=== PATIENT | female | born 1945 | race Caucasian/White ===

== ENCOUNTER → 2017-01-10 | Outpatient (CLI) | payer OTHER, MEDICARE ==
[~2017-01-10] MED LIST: ALBUTEROL2.5 MG/31 INH; ALIGN4 MG; ALLERGY RELIEF10 M1; AMBIEN 5 MG TABL5 M1 PO; ASA5UEC PO; ASPIRIN EC81 M1 PO; ASPIRIN325 PO; ASTEPRO205.5 MCG/; AYR SALINE NASA14 GM; AYR SALINE NASA14 GM TOP; BENEFIBER; BREO ELLIPTA 11 EACH; CALCIUM 1,0001 EACH PO; CALCIUM OYSTER500 MG PO; CALCIUM PO; CARAFATE 1 GM TA1 G1 PO; CARDIZEM CD180 MG OR; CARDIZEM CD180 MG PO; CEFTIN 250 MG250 MG GT; CENTRUM SILVER1 EAC1 PO; CENTRUM SILVER1 EAC4 PO; CIPROFLOXACIN250 M2 PO; CIPROFLOXACIN500 M1 PO; CLARITIN10 M2 PO; CLARITIN10 MG PO; COUMADIN 2.5MG2.5 M1 PO; COUMADIN 3 MG TA3 MG PO; COUMADIN 5 MG TA5 M1; COUMADIN 5 MG TA5 M1 PO; CRANBERRY 12,61 EACH PO; CRANBERRY200 MG; DETROL LA4 MG PO; DEXILANT60 MG PO; DILTIAZEM ER120 M1 PO; DOXYCYCLINE 10100 M1; DOXYCYCLINE 10100 M1 PO; DOXYCYCLINE 10100 MG PO; DULERA 100 MCG/13 GM IH; DULERA 100 MCG/13 GM INH; ENOXAPARIN100 MG/1 M SQ; GAVISCON EXTRA355 ML PO; HI-CAL500 MG PO; HYDROCODON-ACE1 EAC7 PO; IBUPROFEN 600600 M1 PO; KAPIDEX60 MG PO; KEFLEX500 MG PO; KLOR-CON 1010 MEQ PO; LANOXIN 0.250.25 MG PO; LEVALBUTER1.25 MG/3; LEVAQUIN 250 M250 MG PO; LEVAQUIN 500 M500 M2 PO; LEVAQUIN 500 M500 MG PO; LOMOTIL TABLET1 EACH PO; MACRODANTIN50 M1 PO; MACRODANTIN50 MG; MAGNESIUM GLUC250 MG PO; METOCLOPRAMIDE 55 M1 PO; MINIPRIN81 MG PO; MYRBETRIQ50 MG PO; NASOGEL SALIN28.4 GM NS; NASONEX17 GM; NASONEX17 GM IH; NASONEX17 GM NASAL; NEILMED SINUS R1 KIT NASAL; NORCO 5-325 TA1 EACH; NORCO 5-325 TA1 EACH PO; NYSTATIN 100,0015 G1 TOP; OXYBUTYNIN 5 MG5 M1 PO; OXYBUTYNIN PO; PACERONE 200 M200 M1 PO; PACERONE 200 M200 MG PO; PREDNISONE 10 M10 M1 PO; PREDNISONE 10 M10 MG PO; PREDNISONE 20 M20 MG PO; PREDNISONE50 MG PO; PROBIOTIC1 EAC1 PO; PROTONIX40 M2 PO; PROVENTIL HFA6.7 G1 INH; QUINAGLUTE DUR324 M1 PO; QUININE SULFAT324 MG; QVAR HFA 440 MCG/UN1 INH; RESTASIS1 EACH OPHTHALMIC; RYTHMOL SR325 MG PO; SALINE NASAL GEL NASAL; SEREVENT DISKU50 MCG IH; SINGULAIR 10 MG10 M1 PO; SINGULAIR PO; SINUS WASH NET1 EACH NASAL; SLOW-MAG64 MG PO; SYMBICORT160 MCG/4. IH; TRAMADOL 50 MG50 MG PO; TUSSIONEX PENN473 ML PO; TUSSIONEX PENNKI1 ML PO; VENTOLIN HFA 1818 GM; VITAMIN D1000 UNI1 PO; XARELTO10 MG PO; XARELTO20 MG PO; XOPENEX HF1 UDINHALE; XOPENEX HFA15 GM INH; ZYRTEC; ZYRTEC 10 MG TA10 MG PO; [UNRECOGNIZED DRUG - SUPPLY]
== END ==
LOC: RAD 13:21
DX: J41.8 Mixed simple and mucopurulent chronic bronchitis (principal)

== ENCOUNTER → 2017-09-06 | Outpatient (CLI) | payer OTHER, MEDICARE | LOC: RAD 14:28 | DX: J98.11 Atelectasis (principal); J18.9 Pneumonia, unspecified organism ==

== ENCOUNTER 2019-08-14 04:52 | Inpatient (IN) | payer OTHER, MEDICARE ==
[~2019-08-14] VITALS: Ht 152.4 cm; Wt 99.8 kg
[2019-08-14 04:54] VITALS: BP 152/82
[2019-08-14] MEDS ORDERED: SYMBICORT160 MCG/4. INH (05:09)
[2019-08-14] MEDS ORDERED: TAMBOCOR 100 M100 M1 PO (05:10)
[2019-08-14] MEDS ORDERED: OMEPRAZOLE 20 M20 M1 PO (05:10)
[2019-08-14] MEDS ORDERED: CARTIA XT180 M1 PO (05:10)
[2019-08-14] MEDS ORDERED: OXYBUTYNIN 5 MG5 M2 PO (05:11)
[2019-08-14] MEDS ORDERED: CARTIA XT240 M1 PO (05:11)
[2019-08-14] MEDS ORDERED: FINACEA50 G1 TOP (05:11)
[2019-08-14] MEDS ORDERED: XYZAL5 MG PO (05:12)
[2019-08-14] MEDS ORDERED: CELEXA 10 MG TA10 M1 PO (05:12)
[2019-08-14] MEDS ORDERED: HYDROCORT-PRAMO30 G1 TOP (05:13)
[2019-08-14] MEDS ORDERED: XOLAIR150 MG/1 M SUBQ (05:13)
[2019-08-14] MEDS ORDERED: KEFLEX500 M1 PO (05:14)
[2019-08-14] MEDS ORDERED: PROBIOTIC-10 11 EACH PO (05:14)
[2019-08-14 05:37] LABS: ABSOLUTE NEUTROPHILS 4.1 thou/uL (1.4-8.2); BASOPHILS 0.8 % (0.0-2.0); EOSINOPHILS 4.4 % (0.0-3.0); HEMATOCRIT 39.4 % (37.0-47.0); HEMOGLOBIN 13.2 gm/dL (12.0-15.0); LYMPHOCYTES 27.4 % (24.0-44.0); MCH 29.9 pg (26.0-34.0); MCHC 33.4 g/dL (28.0-37.0); MCV 89.5 fL (80.0-100.0); MONOCYTES 8.6 % (1.0-8.0); PLATELET COUNT 267 thou/uL (150-400); POLYS 58.8 % (36.0-66.0); RDW 13.4 % (10.5-14.5); WBC 6.9 thou/uL (4.0-11.0)
[2019-08-14 06:03] LABS: ANION GAP 10 mmol/L (7-16); BUN 19 mg/dL (7-18); CALCIUM 9.1 mg/dL (8.5-10.1); CHLORIDE 103 mmol/L (98-107); CO2 26 mmol/L (21-32); CREATININE 0.8 mg/dL (0.6-1.0); GLUCOSE 121 mg/dL (74-106); POTASSIUM 4.4 mmol/L (3.5-5.1); SODIUM 139 mmol/L (136-145)
[2019-08-14 06:05] LABS: APTT 31.8 Seconds (24.5-32.8); INR 1.2
[2019-08-14 06:11] LABS: ALBUMIN 3.5 g/dL (3.4-5.0); LIPASE 72 U/L (73-393); SGOT 30 U/L (15-37); SGPT 37 U/L (30-65); TOTAL BILIRUBIN 0.3 mg/dL (<0.1-1.0); TOTAL PROTEIN 7.2 g/dL (6.4-8.2); TROPONIN-I <0.06 ng/mL (<0.06)
[2019-08-14 06:24] LABS: URINE BILIRUBIN NEGATIVE (Negative); URINE BLOOD NEGATIVE (Negative); URINE CLARITY CLEAR; URINE COLOR YELLOW; URINE GLUCOSE-RANDOM* NEGATIVE (Negative); URINE KETONES NEGATIVE (Negative); URINE LEUKOCYTES-REFLEX NEGATIVE (Negative); URINE NITRITE-REFLEX NEGATIVE (Negative); URINE PROTEIN (DIPSTICK) NEGATIVE (Negative); URINE SPECIFIC GRAVITY 1.025 (1.005-1.035); URINE UROBILINOGEN 0.2 E.U./dl (0.2-1.0)
--- NOTE | 2019-08-14 17:23 | EKG ---
[place] [address] [facility] [place] [address] ELECTROCARDIOGRAM REPORT Name: NGOCUNIQUE CHIRINOS Room #: [id number] Admission: 08/14/19 Attend Phys: Discharge: Date of : 49 Report #: [id number] THIS REPORT FOR: //name// [facility] ED Test Date: 2019-08-14 Test Time: 05:49:14 Pat Name: UNIQUE GROSSMAN Department: Room: Gender: F Site Manager: nabeel vidal : 1945 Requested By: Stan Smith Order Number: [id number] MD: Sohail Shepherd Measurements Intervals [place] Rate: 62 P: 53 PA: 218 QRS: -8 QRSD: 112 T: 0 QT: 440 QTc: 447 Interpretive Statements Sinus rhythm Borderline prolonged PA interval Borderline intraventricular conduction delay Compared to ECG 05/01/2016 12:24:08 Left ventricular hypertrophy no longer present Electronically Signed On 08-14-2019 17:23:01 SENIOR ORACLE DATABASE DEVELOPER by Sohail Shepherd [email or web address] <ELECTRONICALLY SIGNED> By: Sohail Shepherd MD 08/14/19 1723 D: 0149 0549 Sohail Shepherd MD /IRMA
[2019-08-14 18:01] VITALS: BP 120/49
[2019-08-14 18:50] VITALS: BP 118/60
[2019-08-14 21:00] VITALS: BP 123/69
--- NOTE | 2019-08-14 21:18 | NUR ---
1914 PT TO FLOOR AND ADMISSION ASSESSMENT COMPLETED SEE ADMISSION CHARTIN, PT WITH COMPLAINTS OF MOVING ABDOMINAL PAIN AND CONSTIPATION. 2029 PT HAS HAD TWO-3 LARGE SOFT BOWEL MOVEMENTS IN BEDSIDE COMMODE, DAUGHTER AT BEDSIDE, FALL RISK BRACELET IN PLACE AND FALL YELLOW SOCKS ON, PT TO CALL NURSING TO GET UP OUT OF BED FALL CONTRACT SIGNED. 2119 PT CONTINUES ON BEDSIDE COMMODE, GAITBELT AT PT BEDSIDE, ANOTHER SOFT MED [employer] BM.
[2019-08-15 04:30] VITALS: BP 120/45
[2019-08-15 06:03] LABS: HEMATOCRIT 37.9 % (37.0-47.0); HEMOGLOBIN 12.2 gm/dL (12.0-15.0); MCHC 32.2 g/dL (28.0-37.0); MCV 90.2 fL (80.0-100.0); RBC 4.2 mil/uL (4.20-5.00); RDW 13.6 % (10.5-14.5); WBC 8.9 thou/uL (4.0-11.0)
[2019-08-15 06:22] LABS: CALCIUM 8.5 mg/dL (8.5-10.1); CREATININE 0.8 mg/dL (0.6-1.0); POTASSIUM 4.3 mmol/L (3.5-5.1)
[2019-08-15 08:18] VITALS: BP 118/64
--- NOTE | 2019-08-15 12:54 | NUR ---
ASSESSMENT-PT LIVES AT HOME WITH HER WHO IS ON HOSPICE CARE AND HER DTR VIKAS, ANOTHER DTR SABA LIVES ABOUT 5-10 MIN AWAY. PT HAS NOT HAD ANY HH SERVICES IN THE PAST. SHE USES A CANE TO GET AROUND IF HER BACK IS ACTING UP OTHEREWISE WALKS ON HER OWN AND DOES HER OWN ADLS. HER HAS A PVT DUTY CAREGIVER 2 DAYS A WEEK FOR 4HRS AND THIS PERSON ASSISTS WITH CLEANING THE HOUSE ALSO. THEY HAVE A WALK-IN SHOWER WITH SHOWER CHAIR AND BARS TO ASSIST. PT/DTR DENY ANY DC NEEDS AT THIS TIME. FOLLOWING.
[2019-08-15] MEDS ORDERED: PROTONIX40 M2 PO (14:09)
[2019-08-15] MEDS ORDERED: MIRALAX17 GM PO (14:09)
[2019-08-15 15:25] VITALS: BP 118/64
--- NOTE | 2019-08-15 16:27 | NUR ---
Assumed care of pt at 0700. Pt a&ox4. C/o abd pain. Prn pain meds administered. SBA to bedside commode. GI consulted. Fall precautions in place. Pt discharging to home.
== END 2019-08-15 16:57 | disposition home or self-care (01) | DRG 440 ==
LOC: ER 04:52 → 4S 17:45 → EROBS 17:45 → 4S 18:54
PROVIDERS: Emergency Medicine; ADMIT Hospitalist
DX: K85.90 Acute pancreatitis without necrosis or infection, unspecified (principal); K21.9 Gastro-esophageal reflux disease without esophagitis; K59.00 Constipation, unspecified; K83.8 Other specified diseases of biliary tract; M48.00 Spinal stenosis, site unspecified; K08.409 Partial loss of teeth, unspecified cause, unspecified class; J45.909 Unspecified asthma, uncomplicated; I48.91 Unspecified atrial fibrillation; Z79.899 Other long term (current) drug therapy; Z90.89 Acquired absence of other organs; Z90.49 Acquired absence of other specified parts of digestive tract; Z79.01 Long term (current) use of anticoagulants; Z87.442 Personal history of urinary calculi; Z98.42 Cataract extraction status, left eye; Z98.41 Cataract extraction status, right eye; Z87.891 Personal history of nicotine dependence; Z87.440 Personal history of urinary (tract) infections; Z88.5 Allergy status to narcotic agent; Z88.0 Allergy status to penicillin; Z88.2 Allergy status to sulfonamides; Z88.8 Allergy status to other drugs, medicaments and biological substances; Z86.010 Personal history of colon polyps
CPT/HCPCS: 10195

== ENCOUNTER 2020-06-14 12:20 | Inpatient (IN) | payer OTHER, MEDICARE ==
[~2020-06-14] VITALS: Ht 167.6 cm; Wt 127.8 kg
[~2020-06-14 12:20] MED LIST changes: +CARTIA XT180 M1 PO; +CARTIA XT240 M1 PO; +CELEXA 10 MG TA10 M1 PO; +FINACEA50 G1 TOP; +HYDROCORT-PRAMO30 G1 TOP; +KEFLEX500 M1 PO; +MIRALAX17 GM PO; +OMEPRAZOLE 20 M20 M1 PO; +OXYBUTYNIN 5 MG5 M2 PO; +PROBIOTIC-10 11 EACH PO; +SYMBICORT160 MCG/4. INH; +TAMBOCOR 100 M100 M1 PO; +XOLAIR150 MG/1 M SUBQ; +XYZAL5 MG PO
[2020-06-14 12:21] VITALS: BP 111/59
[2020-06-14 13:32] LABS: ANION GAP 12 mmol/L (7-16); BUN 20 mg/dL (7-18); CALCIUM 8.6 mg/dL (8.5-10.1); CHLORIDE 102 mmol/L (98-107); CO2 21 mmol/L (21-32); CREATININE 1.2 mg/dL (0.6-1.0); GLUCOSE 167 mg/dL (74-106); POTASSIUM 3.6 mmol/L (3.5-5.1); SODIUM 135 mmol/L (136-145)
[2020-06-14 13:41] LABS: APTT 29.7 Seconds (24.5-32.8); D-DIMER 0.19 ug/mLFEU (0.19-0.50); PROTIME 10.3 Seconds (9.3-11.4)
[2020-06-14 13:45] LABS: ALBUMIN 3.1 g/dL (3.4-5.0); DIRECT BILIRUBIN < 0.1 mg/dL (<0.1-0.2); SGOT 59 U/L (15-37); SGPT 56 U/L (30-65); TOTAL BILIRUBIN 0.2 mg/dL (0.2-1.0); TOTAL PROTEIN 7.1 g/dL (6.4-8.2); TROPONIN-I <0.06 ng/mL (<0.06)
--- NOTE | 2020-06-14 14:42 | EKG ---
[facility] [place] [address] ELECTROCARDIOGRAM REPORT Name: UNIQUE GROSSMAN Room #: REG [facility]#: [id number] Admission: 06/14/20 Attend Phys: Discharge: Date of : 49 Report #: [id number] THIS REPORT FOR: cc: Mojgan Hill MD, Cora A. MD Santiago, Patrick MD [facility] ~ THIS REPORT FOR: //name// [facility] ED Test Date: 2020-06-14 Test Time: 13:26:46 Pat Name: UNIQUE GROSSMAN Department: Room: Gender: F Farm Adviser: ORLY SANDERS : 1945 Requested By: Melissa Timmons Order Number: [id number] MD: Roberto Sprague Measurements Intervals [place] Rate: 74 P: 64 MN: 203 QRS: -14 QRSD: 115 T: 7 QT: 443 QTc: 492 Interpretive Statements Sinus rhythm Left atrial enlargement Left ventricular hypertrophy Borderline prolonged QT interval Compared to ECG 08/14/2019 05:49:14 Atrial abnormality now present Left ventricular hypertrophy now present Electronically Signed On 06-14-2020 14:42:23 NATURALIST by Roberto Sprague [email or web address] <ELECTRONICALLY SIGNED> By: Roberto Sprague MD, FACC 06/14/20 1442 1326 1326 Roberto Sprague MD, [facility] /EPI
[2020-06-14 14:52] LABS: ABSOLUTE NEUTROPHILS 3.5 thou/uL (1.4-8.2); BASOPHILS 0.2 % (0.0-2.0); EOSINOPHILS 0.1 % (0.0-3.0); HEMATOCRIT 38.9 % (37.0-47.0); HEMOGLOBIN 12.8 gm/dL (12.0-15.0); MCH 29.7 pg (26.0-34.0); MCHC 32.9 g/dL (28.0-37.0); MCV 90.3 fL (80.0-100.0); MONOCYTES 6.3 % (1.0-8.0); PLATELET COUNT 190 thou/uL (150-400); POLYS 80.4 % (36.0-66.0); RDW 14.4 % (10.5-14.5); WBC 4.3 thou/uL (4.0-11.0)
[2020-06-14 16:48] LABS: BE(vivo) -4.9 mmol/L (-2 to +3); HCO3 19.6 mmol/L (22.0-26.0); PCO2 34.6 mmHg (35.0-45.0); PO2 71.4 mmHg (80.0-100.0); pH 7.371 (7.360-7.450); sO2 94.1 % (92.0-98.0)
[2020-06-14 16:56] VITALS: BP 126/47
[2020-06-14 20:10] VITALS: BP 119/53
[2020-06-14 20:27] VITALS: BP 120/61
[2020-06-14 20:45] VITALS: BP 135/82
[2020-06-15] VITALS (8 sets, daily range): BP systolic 98–147; BP diastolic 50–88
[2020-06-15 05:31] LABS: FIBRINOGEN 389.2 mg/dL (210-360)
[2020-06-15 05:40] LABS: HEMATOCRIT 35.4 % (37.0-47.0); HEMOGLOBIN 11.9 gm/dL (12.0-15.0); MCH 30.1 pg (26.0-34.0); MCHC 33.6 g/dL (28.0-37.0); MCV 89.6 fL (80.0-100.0); PLATELET COUNT 181 thou/uL (150-400); RBC 3.95 mil/uL (4.20-5.00); RDW 14.5 % (10.5-14.5); WBC 2.5 thou/uL (4.0-11.0)
[2020-06-15 06:02] LABS: ALBUMIN 2.9 g/dL (3.4-5.0); CALCIUM 8.5 mg/dL (8.5-10.1); CREATININE 0.9 mg/dL (0.6-1.0); POTASSIUM 4.3 mmol/L (3.5-5.1); TOTAL BILIRUBIN 0.2 mg/dL (0.2-1.0); TOTAL PROTEIN 6.9 g/dL (6.4-8.2)
--- NOTE | 2020-06-15 07:35 | NUR ---
ADMITTED FROM ER UNDER 'S CARE. CONVALESCNET PLASMA INFUSION COMPLETED. MARSA SWAB,URINE COLLECTED. VSS. NO S/S ACUTE DISTRESS NOTED OR REPORTED AT THIS TIME. CARE TRANSFERRED TO INCOMING RN AT THIS TIME.
[2020-06-15 08:35] LABS: ABSOLUTE NEUTROPHILS 2.1 thou/uL (1.4-8.2)
[2020-06-15 08:36] LABS: PLATELET ESTIMATE NORMAL
--- NOTE | 2020-06-15 16:22 | NUR ---
ASSUMED PATIENT CARE AT 0800. A/O X4. NOTED 88% O2 SAT 0N 6L AT 0800. KEEP INCREAED 02 TO 10L BY 1400. NOTIFIED PADMINI HUTSON AND ANTHONY THAT PATIENT NEEDS MORE O2. POOR APPATITE. GENERLIZED WEAKNESS. VSS. NOT TOWARDS POC GOALS.
[2020-06-15 20:32] LABS: BE(vivo) -3.5 mmol/L (-2 to +3); PCO2 31.6 mmHg (35.0-45.0); pH 7.419 (7.360-7.450); sO2 88.8 % (92.0-98.0)
[2020-06-15 20:36] LABS: PO2 53.5 mmHg (80.0-100.0)
[2020-06-16 01:06] LABS: GLYCOHEMOGLOBIN (HGB A1C) 7.3 % (4.8-5.6)
[2020-06-16 03:31] VITALS: BP 134/75
--- NOTE | 2020-06-16 03:40 | NUR ---
PT AOX4. PT REPORTS NON-CARDIAC CHEST PAIN BROUGHT ON AND WORSENED BY COUGHING. PT REPORTS SOB WITH 15L PER NC, O2 SATURATIONS IN THE 80S, CYANOSIS TO LIPS OBSERVED. ONCALL CEMETERY LABORER NOTIFIED, STAT ABGS AND BIPAP ORDERED. ONCE BIPAP APPLIED, O2 SATURATIONS NOTED TO IMPROVE TO 97-100%. PT RESTLESS AND ANXIOUS WITH SOB. ONCALL CEMETERY LABORER NOTIFIED, RECEIVED ORDERS FOR ONETIME IV 0.25MG ATIVAN, GIVEN WITH POSITIVE EFFECT. PT MAINTAINED ON BIPAP. PT TOLERATING PO INTAKE OF FLUIDS AND REGULAR DIET WITHOUT ISSUE. PT VOIDING PER EXTERNAL CATHETER, NO BM THIS SHIFT. PT RESTING IN BED THROUGHOUT SHIFT, FREQUENT REPOSITIONING ENCOURAGED. PT NOTED TO SHIFT INDEPENDENTLY WHILE IN BED. PT NOTIFED STAFF WITH CONCERN OF HEARING NONVIOLENT VOICES CAUSING INCREASE IN ANXIETY AND RESTLESSNESS. ONCALL CEMETERY LABORER NOTIFIED, RECEIVED ORDERS FOR ONETIME IV 0.25MG HALDOL, GIVEN WITH POSITIVE EFFECT. PT ENCOURAGED TO NOTIFY STAFF FOR ALL NEEDS, CALL LIGHT WITHIN REACH, BED ALARM ON, BED IN LOWEST POSITION, FREQUENT MONITORING WILL CONTINUE.
[2020-06-16 05:00] LABS: BE(vivo) -5.9 mmol/L (-2 to +3); HCO3 18.7 mmol/L (22.0-26.0); PCO2 33.7 mmHg (35.0-45.0); PO2 174.4 mmHg (80.0-100.0); pH 7.361 (7.360-7.450); sO2 99.2 % (92.0-98.0)
[2020-06-16 06:12] LABS: CALCIUM 8.3 mg/dL (8.5-10.1); CREATININE 0.8 mg/dL (0.6-1.0); MAGNESIUM 1.8 mg/dL (1.8-2.4); POTASSIUM 3.9 mmol/L (3.5-5.1)
[2020-06-16 06:15] LABS: SGOT 56 U/L (15-37); SGPT 58 U/L (30-65)
[2020-06-16 07:46] VITALS: BP 141/73
[2020-06-16 11:27] VITALS: BP 122/81
--- NOTE | 2020-06-16 13:19 | NUR ---
CARE ASSUMED AT 0700, PT WAS PUT ON BIPAP LAST NIGHT, RESPIRATORY RATE IN THE 30'S, SOB WITH EXERTION. PT ALERT AND OREINTED X4, COMPARE TO CONFUSION DURING SUPERVISOR METER SHOP. PT DENIES ANY PAIN, NAUSEA AND VOMITTING. RICKETTS IN PLACE, SECURED AND PATENT. HOUSE SUP UPDATED ABOUT PT CARE AND POSSIBLE TRANSFER TO ICU DUE TO INCREASE NEED OF OXYEGN. COMFIRM WITH PT ABOUT CODE STATUS, SHE STATED SHE ONLY WANT INTUBATION, NO CPR. PT DAUGHTER CALLED AND UPDATED ABPUT PT CARE. FALL PRECAUTIONS IN PLACE. WILL CONTINUE TO MONITOR.
--- NOTE | 2020-06-16 14:42 | NUR ---
Case opened to follow for support and dc planning. Pt is currently in enhanced ISO for Covid+ (original test in the community 06/10/20). The pt came to the ER with worsening SOB and is now on the bipap 75% FIO2. Possible transfer to ICU if her condition worsens. Parking Enforcement Manager spoke with her dtr Lesly. Support provided and cm role introduced. Lesly indicates that she had covid and is on her last day of quarentine today. She is a mainframe developer. She lives with the pt in a multi story home with 10 steps up to the main level. The pt was a&ox4 and indep with gait/basic adl's prior to admission, but had been doing outpt therapy here as she has become weaker and more sedentary the past few months. The pt's with hospice care in February of this year and she has seemed to decline since this loss. Lesly indicates that she does the IADLS, errands, housekeeping and laundry. She takes the pt to any dr appts. Her pcp is Dr. Mojgan Hill at [facility] and her cardiologists are Dr. Brower, and Dr Cho at [facility]. The pt's dtr reports that her sister Hailey lives close by them and is supportive and involved as well. The pt has a cane but no other dme. She has not had any HH but they are receptive to referrals for HH/dme pending her dc needs. The pt rec'd cov plasma yesterday. The pt's dtr has been getting updates from the nursing staff and is aware of her current condition. Emotional support provided. Will continue to follow and reassess for possible HH/DME needs at dc.
[2020-06-16 15:20] VITALS: BP 126/72
[2020-06-16 19:07] VITALS: BP 81/61
[2020-06-17 03:34] VITALS: BP 131/53
--- NOTE | 2020-06-17 06:33 | NUR ---
PT ON BIPAP AND HAVING ANXIETY ISSUES WITH IT. SOON OFF, PT DESATS QUICKLY. RICKETTS IN PLACE. FOLLOWING POC WITH IVF/IVPB. HOURLY ROUNDING.
[2020-06-17 07:48] LABS: SGOT 40 U/L (15-37); SGPT 60 U/L (30-65)
[2020-06-17 08:45] VITALS: BP 150/83
[2020-06-17 12:29] VITALS: BP 148/84
[2020-06-17 14:09] LABS: HEMATOCRIT 38.1 % (37.0-47.0); HEMOGLOBIN 12.5 gm/dL (12.0-15.0); MCH 29.7 pg (26.0-34.0); MCHC 32.7 g/dL (28.0-37.0); MCV 90.7 fL (80.0-100.0); RBC 4.2 mil/uL (4.20-5.00); RDW 14.8 % (10.5-14.5); WBC 8.6 thou/uL (4.0-11.0)
[2020-06-17 14:10] LABS: CALCIUM 8.5 mg/dL (8.5-10.1); CREATININE 0.8 mg/dL (0.6-1.0)
--- NOTE | 2020-06-17 14:37 | NUR ---
SW reviewed chart and spoke with nursing and attending physician. Pt remains in Enhanced Isolation due to COVID-19. Pt is afebrile and requiring bipap support. Pt is on IV abx and IV steroids. Pt is completing course of Remdesivir. Pt was pulling at lines and taking off her bipap earlier today. SW received call from pt's dtr, Lesly, requesting an update and asked if pt was able to have her cell phone and alia with her in her room. Pt's dtr stated that she was told that pt may not be able to have these things with her. SW explained that she is able to have them in her room and SW will clarify with pt's nurse if she needs assistance with accessing the devices. SW spoke with pt's nurse, who states that pt has her devices on the table next to her. SW is following to assist as needed with discharge planning.
[2020-06-17 16:00] VITALS: BP 138/74
--- NOTE | 2020-06-17 18:35 | NUR ---
RN ASSUMED PT'S CARE AT 0700AM, PT IS A&OX3, PT IS CONTINUING BIPAP WITH O2 75% TO KEEP O2SAT AT 93-95%, PT'S VS ARE STABLE, BUT PT IS DESAT WHEN SHE IS EATING AND DRINKING AT ACTIVIES , PT IS CONTINING IV ABX AND IV FLIUD, PT HAS MEDICATION FOR ANXIETY. RN WILL REPORT TO NEXT SHIFT TO KEEP EYE ON PT.
[2020-06-17 21:49] VITALS: BP 145/76
[2020-06-18] VITALS (42 sets, daily range): BP systolic 122–208; BP diastolic 61–117
--- NOTE | 2020-06-18 04:28 | NUR ---
ASSESSMENT DOCUMENTED.PT RESTING IN NO ACUTE DISTRESS AT THIS TIME.REMAINS ON BIPAP AT FIO2 OF 75%,OXYGEN SATURATION ABOVE 95%.SOME PERIODS OF ANXIETY NOTED,PRN ANTIANXIETY MEDS GIVEN AND PT WAS ABLE TO RELAX AND SLEEP.SOB W/SLIGHT EXERTION EVEN WITH HYDRATION OR REPOSITIONING IN BED.TOLEARTING PO FLUIDS.IVPB ANTIBOTICS PER ORDERS.TYLENOL GIVEN FOR GENERALIZED ACHES W/RELIEF.PT VOICED HER NEEDS APPROPRIATELY.JAMARCUS DD,ADEQUATE UO.POC IS TO CONT W/CURRENT TREATMENT.DR [place] ROUNDED,NO N/OS RECEIVED.
[2020-06-18 05:44] LABS: ABSOLUTE NEUTROPHILS 5.7 thou/uL (1.4-8.2); HEMATOCRIT 35.9 % (37.0-47.0); MCH 29.8 pg (26.0-34.0); MCHC 33.5 g/dL (28.0-37.0); MCV 88.9 fL (80.0-100.0); MONOCYTES 4.9 % (1.0-8.0); PLATELET COUNT 235 thou/uL (150-400); POLYS 91.1 % (36.0-66.0); RBC 4.03 mil/uL (4.20-5.00); RDW 13.9 % (10.5-14.5); WBC 6.2 thou/uL (4.0-11.0)
[2020-06-18 06:33] LABS: CREATININE 0.7 mg/dL (0.6-1.0); POTASSIUM 3.6 mmol/L (3.5-5.1)
[2020-06-18 06:35] LABS: SGOT 38 U/L (15-37); SGPT 62 U/L (30-65)
--- NOTE | 2020-06-18 14:17 | NUR ---
SW reviewed chart and spoke with nursing and attending physician. Pt remains in Enhanced Isolation due to COVID-19. Pt is afebrile and requiring bipap support. Pt is on IV abx and IV steroids. Pt is completing course of Remdesivir. No weekend discharge planned. Pt will need therapy evals ordered when she is able to participate. MARY is following to assist as needed with discharge planning.
--- NOTE | 2020-06-18 16:02 | NUR ---
ASSUMED CARE OF PT AT 0700. PT ALERT AND ORIENTED, IN RESP DISTRESS. DESATURATES OFF BIPAP. MODERATELY ANXIOUS BUT COOPERATIVE WITH CARE. INSTRUCTED TO TRANSFER TO ICU FOR STAT INTUBATING BY PULM. DAUGHTER VIKAS NOTIFIED BY PHONE OF CHANGE IN PATIENT STATUS.
[2020-06-18 17:08] LABS: BE(vivo) -2.5 mmol/L (-2 to +3); HCO3 22.8 mmol/L (22.0-26.0); PCO2 41.2 mmHg (35.0-45.0); PO2 122.2 mmHg (80.0-100.0); pH 7.361 (7.360-7.450); sO2 98.3 % (92.0-98.0)
--- NOTE | 2020-06-18 17:24 | NUR ---
VAT CONSULTED FOR CVL. RIGHT IJ PLACED, USING US GUIDANCE, DOCUMENTED.
--- NOTE | 2020-06-18 19:43 | NUR ---
PT CAME FROM 3WEST 356 ON 70% BIPAP.PT WAS INTUBATED AT [address] CRUZ. PT WAS SEDATED WITH 60MG OF SUCC AND 40MG OF ATOMIDATE. PT SEDATED WITH PROPOFOL AND FENTANYL DRIP. OG PLACED. RIGHT IJ TRIPLE LUMEN PLACED BY IV NURSE. BEDSIDE CHEST XRAY PERFORMED. PT ON RESTRAINTS. CONTINUE TO MONITOR.
--- NOTE | 2020-06-18 20:07 | NUR ---
PT'S DAUGHTER VIKAS UPDATED ON PT TRANSFER TO ICU AND INTUBATION EVENT. DAUGHTER VIKAS WAS ALSO GIVEN ICU PT PRIVACY CODE AND ICU PHONE NUMBER.
[2020-06-19] VITALS (33 sets, daily range): BP systolic 123–154; BP diastolic 54–97
[2020-06-19 04:53] LABS: SGOT 32 U/L (15-37); SGPT 52 U/L (30-65)
[2020-06-19 11:21] LABS: BE(vivo) -2.5 mmol/L (-2 to +3); HCO3 22.7 mmol/L (22.0-26.0); PCO2 41.1 mmHg (35.0-45.0); PO2 88.6 mmHg (80.0-100.0); pH 7.361 (7.360-7.450); sO2 96.5 % (92.0-98.0)
--- NOTE | 2020-06-19 18:17 | NUR ---
PT REMAINS ON VENT. SEDATED WITH PROPOFOL AND FENT. DURING SEDATION VACATION THIS AM PT WILL OPEN EYES FOLLOW COMMANDS. SPOKE WITH PT'S DAUGHTER THIS AFTERNOON AND UPDATED HER. WILL CONTINUE TO MONITOR PATIENT.
[2020-06-20] VITALS (41 sets, daily range): BP systolic 131–162; BP diastolic 57–79
[2020-06-20 05:04] LABS: BE(vivo) -4.3 mmol/L (-2 to +3); HCO3 20.9 mmol/L (22.0-26.0); PO2 110.4 mmHg (80.0-100.0); pH 7.347 (7.360-7.450); sO2 97.8 % (92.0-98.0)
[2020-06-20 05:20] LABS: ABSOLUTE NEUTROPHILS 8.7 thou/uL (1.4-8.2); HEMATOCRIT 34.1 % (37.0-47.0); HEMOGLOBIN 11.3 gm/dL (12.0-15.0); LYMPHOCYTES 1.8 % (24.0-44.0); MCH 29.7 pg (26.0-34.0); MCHC 33.1 g/dL (28.0-37.0); MCV 89.7 fL (80.0-100.0); MONOCYTES 4.5 % (1.0-8.0); PLATELET COUNT 266 thou/uL (150-400); POLYS 93.7 % (36.0-66.0); RBC 3.81 mil/uL (4.20-5.00); RDW 13.8 % (10.5-14.5); WBC 9.3 thou/uL (4.0-11.0)
[2020-06-20 05:29] LABS: ALBUMIN 2.1 g/dL (3.4-5.0); CALCIUM 8.1 mg/dL (8.5-10.1); CREATININE 0.7 mg/dL (0.6-1.0); POTASSIUM 3.5 mmol/L (3.5-5.1); TOTAL BILIRUBIN 0.3 mg/dL (0.2-1.0); TOTAL PROTEIN 5.6 g/dL (6.4-8.2)
--- NOTE | 2020-06-20 18:09 | NUR ---
ASSUMED CARE @ 0700 06/20/20, PT ASSESSMENTS AND VSS COMPLETE PER ICU PRT. DR CRUZ AND DR TEJADA HERE DURING THIS SHIFT, ORDERS RECEIVED AND IMPLEMENTED. PT HAD AN UNEVENTFUL DAY, WILL CONT TO MONITOR.
[2020-06-21] VITALS (18 sets, daily range): BP systolic 128–161; BP diastolic 51–82
[2020-06-21 05:40] LABS: HEMATOCRIT 32.3 % (37.0-47.0); HEMOGLOBIN 10.7 gm/dL (12.0-15.0); MCH 29.7 pg (26.0-34.0); MCHC 33.1 g/dL (28.0-37.0); MCV 89.7 fL (80.0-100.0); PLATELET COUNT 265 thou/uL (150-400); WBC 12.5 thou/uL (4.0-11.0)
[2020-06-21 06:00] LABS: CALCIUM 8.2 mg/dL (8.5-10.1); CREATININE 0.6 mg/dL (0.6-1.0); DIRECT BILIRUBIN 0.1 mg/dL (<0.1-0.2); MAGNESIUM 2.3 mg/dL (1.8-2.4); PHOSPHORUS 2.1 mg/dL (2.5-4.9); POTASSIUM 3.2 mmol/L (3.5-5.1); TOTAL BILIRUBIN 0.3 mg/dL (0.2-1.0); TOTAL PROTEIN 5.2 g/dL (6.4-8.2)
--- NOTE | 2020-06-21 06:00 | NUR ---
REMAINS INTUBATED AND SEDATED. VSS SINUS RHYTHM. COVID + ISOLATION 800 CC UO THIS SHIFT. WILL CONT TO MONITOR
[2020-06-21 08:34] LABS: BE(vivo) -1.9 mmol/L (-2 to +3); HCO3 23.7 mmol/L (22.0-26.0); PCO2 43.5 mmHg (35.0-45.0); PO2 107.2 mmHg (80.0-100.0); pH 7.354 (7.360-7.450); sO2 97.7 % (92.0-98.0)
--- NOTE | 2020-06-21 11:06 | NUR ---
When ready to start enteral nutrition: recommend vital high protein goal of 30ml/hr while on high doses propofol (If no feed pump available, needs 3 cartons per day bolus of vital high protein) Please address fluid needs and hypernatremia with physician
[2020-06-21 11:43] LABS: ABSOLUTE NEUTROPHILS 11.6 thou/uL (1.4-8.2); METAMYELOCYTES 1 %; MYELOCYTES 1 %
[2020-06-21 11:44] LABS: ANISOCYTOSIS 1+; OVALOCYTES FEW
--- NOTE | 2020-06-21 12:53 | NUR ---
cm transferred down from 3w on . requires vent and nutritional support. will cont following as needed for dc needs.
--- NOTE | 2020-06-21 19:40 | NUR ---
PATIENT NOT PROGRESSING TOWARDS DISMISSAL GOALS. PATIENT CONTINUES TO REQUIRE 80% FIO2. FENTANYL AND PROPOFOL FOR SEDATION. TUBE FEEDS INITIATED AT 1830. VITAL HP. SPOKE WITH FAMILY (VIKAS) TODAY ABOUT PATIENT STATUS. NO BM.
[2020-06-22] VITALS (23 sets, daily range): BP systolic 119–148; BP diastolic 44–71
--- NOTE | 2020-06-22 07:10 | NUR ---
Care assumed 1900. Pt light sedated. Griemaces with deep stimulation and also pt becomes restless with minimal sedation vacation. No other apparent concerns. bath complete this am. 650 cc output from catheter. . og tube clogged this am. pharmacy notified for anticlogging enzyme. Day pharmacist with be notified. Am rn notified. will continue to follow poc.
[2020-06-22 10:47] LABS: CALCIUM 8.2 mg/dL (8.5-10.1); CREATININE 0.5 mg/dL (0.6-1.0); POTASSIUM 3.6 mmol/L (3.5-5.1)
--- NOTE | 2020-06-22 19:00 | NUR ---
PATIENT DOES NOT PROGRESS TOWARDS DISMISSAL GOALS. PATIENT REMAINS 70% FIO2. NO CALLS FROM FAMILY TODAY FOR UPDATES. PATIENT DEVELOPED AFIB RVR. CARDIZEM GTT INITIATED 1100. CARDIOLOGY CONSULTED. PATIENT HEART RATES CONTINUES TO REMAIN 120-130S. AMIODARONE GTT INITIATED 1244. TO CONTINUE FOR 6 HOURS. CONTINUES ON PROPOFOL 60MCG, FENTANYL 75MCG. OG REPLACED VERIFIED BY XRAY. TUBE FEEDS REINITIATED. STARTED 10ML/HR. GOAL IS 30ML/HR. CURRENTLY RUNNING 20ML/HR. RICKETTS IN PLACE.
--- NOTE | 2020-06-22 22:34 | NUR ---
PT CONVERTED TO SR AT APPROXIMATELY AROUND 2130.ON CARDIZEM AT 10ML/HR
[2020-06-23] VITALS (54 sets, daily range): BP systolic 117–185; BP diastolic 50–100
[2020-06-23 05:51] LABS: CALCIUM 8.5 mg/dL (8.5-10.1); CREATININE 0.6 mg/dL (0.6-1.0); POTASSIUM 4.2 mmol/L (3.5-5.1)
--- NOTE | 2020-06-23 07:13 | NUR ---
ASSESSMENT DOCUMENTED.PT REMAINS INTUBATED AND ON VENT WITH SUPPORT OF FENTANYL AND PROPOFOL.PT OPEN EYES OCCASIONALLY AND MOVES EXTREMITIES PERIODICALLY.PT HAD RESPIRATORY DISTRESS THIS AM AROUND 0430 WHERE RT REPOSITIONED THE ET TUBE AND PT WAS OKAY THEREAFTER.TF AT 25CC/HR W/10CC OF RESIDUAL OBTAINED THIS AM.JAMARCUS KAYE.NO OTHER SIGNIFICANT CHANGES NOTED.
--- NOTE | 2020-06-23 18:32 | NUR ---
PT SEEN TODAY BY /. PT IS CURRENTLY ON PROPOFOL/LEVOPHED DRIP. INCREASE FROM 60 TO 70 ON PROPOFOL TODAY. NO CHANGES IN THE VENTILATOR SETTINGS. PT STILL SUSTAINING NSR AFTER CARDIZEM GTT DISCONTINUATION. NO PROGRESS TOWARDS PATIENT DISCHARGE TODAY, RESTRAINTS FOR PT SAFETY. DURING SEDATION VACATION, PT WAS SEEN THRASHING MILDLY BREIFLY AND WAS ABLE TO OPEN EYES AND TRACK BUT HR WOULD BECOME TACHYCARDIC AT 110s AND O2 WOULD DROP TO LOW 90s. PT MAINTAINED ON FALL PRECAUTIONS/Q2H TURNS/CLRT. BLOOD SUGAR RUNNING 200s TODAY. NO ACUTE CHANGES AT THIS TIME. RN SIGNING OFF.
[2020-06-24] VITALS (38 sets, daily range): BP systolic 115–172; BP diastolic 50–82
[2020-06-24 04:14] LABS: HEMATOCRIT 35.1 % (37.0-47.0); HEMOGLOBIN 11.3 gm/dL (12.0-15.0); MCH 28.9 pg (26.0-34.0); MCHC 32.1 g/dL (28.0-37.0); MCV 90.3 fL (80.0-100.0); RBC 3.89 mil/uL (4.20-5.00); RDW 14.5 % (10.5-14.5); WBC 19.6 thou/uL (4.0-11.0)
[2020-06-24 04:23] LABS: CALCIUM 8.4 mg/dL (8.5-10.1); CREATININE 0.5 mg/dL (0.6-1.0); POTASSIUM 3.6 mmol/L (3.5-5.1)
--- NOTE | 2020-06-24 07:47 | NUR ---
VSS. SR/ST ON MONITOR. HYPERTENSIVE AT TIMES. TREATED WITH SCHEDULED BP MEDS. SEDATED ON PROPOFOL AND FENTANYL GTTS. PROPOFOL GTT HUNG PRIMARY AND SECONDARY INFUSIONS TO REDUCE LAPSE IN SEDATION. PT DOES NOT TOLERATE SEDATION VACATIONS AT THIS TIME. RESPONDS WITH THRASHING, RESTLESSNESS, TACHYCARDIA, TACHYPNEA. 1000 CC URINE OUT OVERNIGHT. BLOOD GLUCOSE MAINTAINED WITH SSI. PT TOLERATED CONTINUOUS TUBE FEEDING WELL WITH MINIMAL RESIDUALS. FIO2 DECREASED TO 70% THIS SHIFT.
[2020-06-24 13:37] LABS: ALBUMIN 1.8 g/dL (3.4-5.0); DIRECT BILIRUBIN 0.1 mg/dL (<0.1-0.2); TOTAL BILIRUBIN 0.2 mg/dL (0.2-1.0); TOTAL PROTEIN 5.7 g/dL (6.4-8.2)
--- NOTE | 2020-06-24 17:06 | NUR ---
CONSULTED TO PLACE A PICC FOR A PATIENT THAT HAS A CENTRAL LINE DUE TO THE FACT THE LINE WAS SLUGGISH. NO STAFF HAD ATTEMPTED CATHFLO PRIOR. DRG CHANGED AND LINE HAD A SLIGHT KINK. REPOSITIONED THE LINE- LINE IS PATENT WITH A BLOOD RETURN. CENTRAL LINE IS FUNTIONAL. PICC LINE PLACEMENT IS CONTRAINDICATED FOR COVID PATIENTS DUE TO INCREASED DVT RISK. UPDATED THE NURSE, PICC NOT NECESSARY THIS PATIENTS CENTRAL LINE IS WNL.
--- NOTE | 2020-06-24 18:09 | NUR ---
PT SEEN BY //. PT HAD TO BE PLACED TO [id number] AT 0915 DUE TO DESATTING TO 80s. PT WAS SEEN TO RECOVER WITHIN MINUTES AND WAS TITRATED TO 80% FIO2. PT ALSO REGRESSED BACK TO AFIB THIS MORNING, AMIODARONE DRIP HAS BEEN INITIATED PER PROTOCOL. PT WAS SEEN TO GAIN P WAVE BACK AND MAINTAINED SINUS ARRHYTHMIA THROUGHOUT THE SHIFT. VERSED GTT WAS STARTED AND PROPOFOL DRIP HAS BEEN TITRATED DOWN. PT APPEARS TO BE TOLERATING THIS REGIMEN. SLIGHT INCREASE IN TEMPERATURE WAS NOTED WITH TMAX OF 99.1F AT THE FINAL CHECK. Q2H TURNS HAVE BEEN MAINTAINED. TF HAS BEEN MAINTAINED MINIMAL RESIDUALS NOTED. RESTRAINT STILL WARRANTED FOR PT SAFETY AT THIS TIME. RN SIGNING OFF
[2020-06-25] VITALS (53 sets, daily range): BP systolic 126–163; BP diastolic 50–76
--- NOTE | 2020-06-25 03:43 | NUR ---
TOOK OVER CARE AT 2029. ASSESSMENTS CHARTED. MEDS GIVEN CHARTED. PATIENT RECEIVING FENTANYL, PROPOFOL, AND VERSED THROUGHOUT SHIFT. AFIB ON TELEMETRY. ON THE VENT. TUBE FEED CHARTED. IN RESTRAINTS DURING SHIFT TO PREVENT DISLODGEMENT OF MEDICAL EQUIPMENT. FALL PRECAUTIONS IN PLACE DURING SHIFT. PATIENT NOT HANDLING BEING TURNED AT THIS POINT.
[2020-06-25 04:18] LABS: CALCIUM 8.3 mg/dL (8.5-10.1); CREATININE 0.5 mg/dL (0.6-1.0)
[2020-06-25 04:20] LABS: ALBUMIN 1.5 g/dL (3.4-5.0); DIRECT BILIRUBIN 0.2 mg/dL (<0.1-0.2); TOTAL BILIRUBIN 0.3 mg/dL (0.2-1.0); TOTAL PROTEIN 4.8 g/dL (6.4-8.2)
[2020-06-25 04:21] LABS: POTASSIUM 4.7 mmol/L (3.5-5.1)
[2020-06-25 04:47] LABS: BE(vivo) -0.5 mmol/L (-2 to +3); HCO3 26.8 mmol/L (22.0-26.0); PCO2 56.2 mmHg (35.0-45.0); PO2 80.6 mmHg (80.0-100.0); sO2 94.5 % (92.0-98.0)
[2020-06-25 04:50] LABS: pH 7.296 (7.360-7.450)
--- NOTE | 2020-06-25 18:29 | NUR ---
ASSESSMENTS AND INTERVENTIONS DOCCUMENTED. NO MAJOR CHANGES THROUGH OUT SHIFT. IV LOPRESSOR ORDERED FOR RATE CONTROL, PLACED ON HOLD BUT RESUMED. PATIENT RATE BETTER. DAUGHTER CALLING AT 1801 FOR AN UPDATE. UPDATE GIVEN. PATIENT NOT PROGRESSING TOWARDS GOALS AT THIS TIME EVIDENCE BY REMIANING INTUBATED, NO CHANGE IN VENT SETTINGS.
[2020-06-26] VITALS (18 sets, daily range): BP systolic 125–180; BP diastolic 47–87
[2020-06-26 06:06] LABS: HEMATOCRIT 33.6 % (37.0-47.0); HEMOGLOBIN 10.7 gm/dL (12.0-15.0); MCH 29.3 pg (26.0-34.0); MCHC 31.8 g/dL (28.0-37.0); MCV 92.4 fL (80.0-100.0); RBC 3.63 mil/uL (4.20-5.00); RDW 14.6 % (10.5-14.5); WBC 24.2 thou/uL (4.0-11.0)
[2020-06-26 06:21] LABS: ALBUMIN 1.5 g/dL (3.4-5.0); CALCIUM 8.6 mg/dL (8.5-10.1); CREATININE 0.7 mg/dL (0.6-1.0); DIRECT BILIRUBIN 0.2 mg/dL (<0.1-0.2); PHOSPHORUS 3.8 mg/dL (2.5-4.9); POTASSIUM 5.9 mmol/L (3.5-5.1); TOTAL BILIRUBIN 0.3 mg/dL (0.2-1.0); TOTAL PROTEIN 5.7 g/dL (6.4-8.2)
[2020-06-27] VITALS (27 sets, daily range): BP systolic 83–165; BP diastolic 37–68
[2020-06-27 04:43] LABS: HEMATOCRIT 35.1 % (37.0-47.0); HEMOGLOBIN 10.9 gm/dL (12.0-15.0); MCH 28.9 pg (26.0-34.0); MCHC 31.1 g/dL (28.0-37.0); MCV 92.9 fL (80.0-100.0); RBC 3.77 mil/uL (4.20-5.00); RDW 14.3 % (10.5-14.5); WBC 26.8 thou/uL (4.0-11.0)
[2020-06-27 04:55] LABS: ALBUMIN 1.6 g/dL (3.4-5.0); CALCIUM 8.9 mg/dL (8.5-10.1); CREATININE 0.8 mg/dL (0.6-1.0); PHOSPHORUS 4.4 mg/dL (2.5-4.9); POTASSIUM 4.9 mmol/L (3.5-5.1)
--- NOTE | 2020-06-27 07:58 | NUR ---
Patient not progressing towards plan of care as evidenced by worsening labs, continued need for ventilator, intermittent tachycardia >100, extensive edema, elevated potassium level. No further bowel movement this shift. Plan of care is to continue current treatments as ordered.
--- NOTE | 2020-06-27 15:41 | NUR ---
DAUGHTER VIKAS WAS UPDATED ON THE PT CONDITION TODAY.
--- NOTE | 2020-06-27 23:22 | NUR ---
Dr Kwan paged for pt's being in Afib with HR in the 130-140s after a breahting tx. is aware and wants to monitor. No orders given.
[2020-06-28] VITALS (26 sets, daily range): BP systolic 99–153; BP diastolic 42–88
--- NOTE | 2020-06-28 03:18 | NUR ---
Dr. Kwan paged @ 0204 again for concerns of pt's AFIB and hr being in the 140-170s over the last 30-60mins. He wants to give her 25mg PO metoprolol early and continue to monitor.
[2020-06-28 05:47] LABS: HEMATOCRIT 31.4 % (37.0-47.0); HEMOGLOBIN 10.2 gm/dL (12.0-15.0); MCH 29.6 pg (26.0-34.0); MCHC 32.4 g/dL (28.0-37.0); MCV 91.4 fL (80.0-100.0); RBC 3.43 mil/uL (4.20-5.00); RDW 14.3 % (10.5-14.5); WBC 18.4 thou/uL (4.0-11.0)
[2020-06-28 06:26] LABS: CALCIUM 9.3 mg/dL (8.5-10.1); CREATININE 0.7 mg/dL (0.6-1.0)
--- NOTE | 2020-06-28 14:37 | NUR ---
chart review. she remains on vent, with nutritional support. new orders for afib. bedside nurse provided updates to daughter jarret. will cont following as needed for dc needs. and support.
[2020-06-29] VITALS (79 sets, daily range): BP systolic 71–169; BP diastolic 41–87
[2020-06-29 05:21] LABS: BE(vivo) 10.8 mmol/L (-2 to +3); HCO3 38.4 mmol/L (22.0-26.0); PO2 61.9 mmHg (80.0-100.0); pH 7.353 (7.360-7.450); sO2 89.7 % (92.0-98.0)
[2020-06-29 05:22] LABS: PCO2 70.7 mmHg (35.0-45.0)
[2020-06-29 05:35] LABS: HEMATOCRIT 28.8 % (37.0-47.0); HEMOGLOBIN 9.2 gm/dL (12.0-15.0); MCV 90.8 fL (80.0-100.0); PLATELET COUNT 134 thou/uL (150-400); RBC 3.17 mil/uL (4.20-5.00); RDW 13.6 % (10.5-14.5); WBC 13.9 thou/uL (4.0-11.0)
[2020-06-29 05:55] LABS: ALBUMIN 1.4 g/dL (3.4-5.0); CALCIUM 9.1 mg/dL (8.5-10.1); CREATININE 0.6 mg/dL (0.6-1.0); POTASSIUM 4.7 mmol/L (3.5-5.1); TOTAL BILIRUBIN 0.4 mg/dL (0.2-1.0); TOTAL PROTEIN 5.3 g/dL (6.4-8.2)
--- NOTE | 2020-06-29 07:21 | NUR ---
06/28/2020 Report received at 1900, care assumed. Assessments done at 2000 as documented. Sedation vacation not done, FIO2 AT 75%. Pt only withdraws from pain stimuli. Sedation medication titrated per protocol. FIO2 decreased to 65%. pt tolerating without complications. Will continue to monitor.
[2020-06-29 07:22] LABS: ABSOLUTE NEUTROPHILS 13.5 thou/uL (1.4-8.2); ANISOCYTOSIS 1+; METAMYELOCYTES 1 %; NUCLEATED RBCS 1 /100WBC; POIKILOCYTOSIS 1+
[2020-06-29 07:23] LABS: PLATELET ESTIMATE DECREASED
--- NOTE | 2020-06-29 18:14 | NUR ---
ASSUMED CARE AT 0700. PATIENT NOT PROGRESSING TOWARDS THE PLAN OF CARE.
[2020-06-30] VITALS (26 sets, daily range): BP systolic 115–139; BP diastolic 48–63
[2020-06-30 04:23] LABS: BE(vivo) 15.5 mmol/L (-2 to +3); PO2 67.1 mmHg (80.0-100.0); pH 7.375 (7.360-7.450); sO2 91.9 % (92.0-98.0)
[2020-06-30 04:24] LABS: PCO2 75.2 mmHg (35.0-45.0)
--- NOTE | 2020-06-30 05:41 | NUR ---
Report received at 1900, care assumed. Assessments done as documented. sedation vacation not done, pt does not meet criteria. FI02 65%. Pt only withdraws from pain. ABGs done this morning, Dr Hernandez notified of critical values. No new orers received. Will continue to monitor.
[2020-06-30 05:44] LABS: HEMATOCRIT 22.7 % (37.0-47.0); HEMOGLOBIN 7.4 gm/dL (12.0-15.0); MCH 29.6 pg (26.0-34.0); MCHC 32.8 g/dL (28.0-37.0); MCV 90.3 fL (80.0-100.0); PLATELET COUNT 112 thou/uL (150-400); RBC 2.52 mil/uL (4.20-5.00); RDW 13.7 % (10.5-14.5); WBC 11.5 thou/uL (4.0-11.0)
[2020-06-30 06:14] LABS: ALBUMIN 1.5 g/dL (3.4-5.0); CREATININE 0.6 mg/dL (0.6-1.0); POTASSIUM 4.2 mmol/L (3.5-5.1); TOTAL BILIRUBIN 0.4 mg/dL (0.2-1.0); TOTAL PROTEIN 4.9 g/dL (6.4-8.2)
[2020-06-30 10:17] LABS: ABSOLUTE NEUTROPHILS 10.8 thou/uL (1.4-8.2); ANISOCYTOSIS 1+; HYPOCHROMASIA SLIGHT; LARGE PLATELETS OCCASIONAL; METAMYELOCYTES 1 %; NUCLEATED RBCS 1 /100WBC; POIKILOCYTOSIS SLIGHT
[2020-06-30 10:18] LABS: POLYCHROMASIA SLIGHT
--- NOTE | 2020-06-30 12:43 | NUR ---
ASSUMED CARE OF PATIENT AT 0600. BREATHING TREATMENTS AND VENT CHECKS MADE. PATIENT SHOWING NO SIGNS OF DISTRESS. FIO2 WAS LOWERED TO 60% IN MY CARE.
[2020-06-30 15:19] LABS: HEMATOCRIT 23.2 % (37.0-47.0); HEMOGLOBIN 7.6 gm/dL (12.0-15.0)
--- NOTE | 2020-06-30 15:38 | NUR ---
PT INTUBATED AND SEDATED. FIO2 TITRATED DOWN TO 60%. SEDATION VACATION PERFORMED AND PT WAS NOT ABLE TO FOLLOW ANY COMMANDS, PUPILS ARE FIXED AND DILATED, PROVIDERS AWARE, HEAD CT ORDERED. ABNORMALS LABS REPORTED TO DR CRUZ THIS AM. PT IS AFEBRILE, NO BM, ADEQUATE UOP, TOLERATING TUBE FEED, GENERALIZED ANSARCA. NO PRESSURE SUPPORT NEEDED. PT AND FAMILY HAVE BEEN UPDATED AND EDUCATED ON PT CONDITION AND POC. DAUGHTER SABA WAS CALLED AT 1535 FOR UPDATE. PT NOT PROGRESSING TOWARDS POC.
--- NOTE | 2020-06-30 22:00 | NUR ---
Pt at 2048. Confirmation done by two nurses as per protocol. Family and physicians notified.
== END 2020-06-30 20:49 | DRG 870 ==
LOC: ER 12:20 → 3W 14:45 → EROBS 14:45 → 3W 20:31 → ICU 06-18 16:07
PROVIDERS: Internal Medicine; Internal Medicine Pulmonary Disease; Nurse Practitioner; Nurse Practitioner Family; Pediatrics; Specialist; ADMIT Hospitalist; ATTEND Hospitalist
DX: A41.9 Sepsis, unspecified organism (principal); U07.1 COVID-19; J96.01 Acute respiratory failure with hypoxia; J12.89 Other viral pneumonia; I61.2 Nontraumatic intracerebral hemorrhage in hemisphere, unspecified; N17.9 Acute kidney failure, unspecified; E46 Unspecified protein-calorie malnutrition; J45.901 Unspecified asthma with (acute) exacerbation; E87.0 Hyperosmolality and hypernatremia; G93.40 Encephalopathy, unspecified; Z68.42 Body mass index [BMI] 45.0-49.9, adult; K21.9 Gastro-esophageal reflux disease without esophagitis; F41.9 Anxiety disorder, unspecified; I48.0 Paroxysmal atrial fibrillation; I25.10 Atherosclerotic heart disease of native coronary artery without angina pectoris; D64.9 Anemia, unspecified; E66.9 Obesity, unspecified; E11.65 Type 2 diabetes mellitus with hyperglycemia; J44.9 Chronic obstructive pulmonary disease, unspecified; Z51.5 Encounter for palliative care; F32.9 Major depressive disorder, single episode, unspecified; K59.00 Constipation, unspecified; E87.6 Hypokalemia; T38.0X5A Adverse effect of glucocorticoids and synthetic analogues, initial encounter; Y92.89 Other specified places as the place of occurrence of the external cause; Z88.6 Allergy status to analgesic agent; Z88.0 Allergy status to penicillin; Z88.2 Allergy status to sulfonamides; Z88.8 Allergy status to other drugs, medicaments and biological substances; Z87.891 Personal history of nicotine dependence; Z98.42 Cataract extraction status, left eye; Z98.41 Cataract extraction status, right eye; Z90.49 Acquired absence of other specified parts of digestive tract; Z80.0 Family history of malignant neoplasm of digestive organs; Z23 Encounter for immunization
CPT/HCPCS: 10078; 10203; 10879